=== PATIENT | male | born 1990 | race Caucasian/White ===

== ENCOUNTER 2019-11-04 10:42 | Emergency (ER) | payer MEDICAID ==
[~2019-11-04] VITALS: Ht 185.4 cm; Wt 123.8 kg
--- NOTE | 2019-11-04 11:10 | NUR ---
RADIOLOGY AT BEDSIDE
--- NOTE | 2019-11-04 11:13 | NUR ---
COUGH, CONGESTION, AND CHILLS X 3 DAYS. DENIES PAIN, FEVER, H/A. DENIES SOB, DIZZINESS, WEAKNESS, N/V. AOX4, AMBULATORY, VSS, RR EVEN AND UNLABORED ON ROOM AIR. NO ACUTE DISTRESS NOTED. SKIN INTACT, WARM, DRY. NO OTHER MEDICAL COMPLAINTS AT THIS TIME. MADE COMFORTABLE AND READY FOR EVAL.
[2019-11-04 11:33] VITALS: BP 147/91
--- NOTE | 2019-11-04 11:33 | NUR ---
Patient discharged to home in stable condition. Written and verbal after care instructions given. Patient verbalizes understanding of instruction.
== END 2019-11-04 11:33 | disposition home or self-care (01) ==
LOC: ER 10:49
DX: J06.9 Acute upper respiratory infection, unspecified (principal)
CPT/HCPCS: 71045-TC

== ENCOUNTER 2021-08-30 10:56 | Emergency (ER) | payer MEDICAID ==
[~2021-08-30] VITALS: Ht 182.9 cm; Wt 97.5 kg
[2021-08-30 11:08] VITALS: BP 135/64
--- NOTE | 2021-08-30 11:11 | NUR ---
BIBS for c/o R thumb crush injury while using a hammer at 0900. unknown tdap vaccine. Rates right thumb pain 03/31. Will continue to monitor the patient.
[2021-08-30] MEDS ORDERED: IBUPROFEN 600 MG TABLET PO ONE (11:30)
[2021-08-30] MEDS ORDERED: TDAP [DIPH/PERTUSSIS/TET] 0.5 ML VIAL IM ONE ×2 (11:30→11:35)
[2021-08-30] MEDS ORDERED: IBUPROFEN 600 MG TABLET ONE (11:35)
--- NOTE | 2021-08-30 11:35 | NUR ---
COURTESY VAN DRIVER AT PT'S BEDSIDE
[2021-08-30] MEDS ORDERED: CEPH500C2 PO (11:58)
[2021-08-30] MEDS ORDERED: IBUP-1957 PO (11:58)
[2021-08-30] MEDS ORDERED: HYDR-3972 PO (11:58)
--- NOTE | 2021-08-30 12:06 | NUR ---
Patient discharged to home in stable condition. Written and verbal after care instructions given. Patient verbalizes understanding of instruction.
== END 2021-08-30 12:07 | disposition home or self-care (01) ==
LOC: ER 11:17
DX: S62.522A Displaced fracture of distal phalanx of left thumb, initial encounter for closed fracture (principal); W22.8XXA Striking against or struck by other objects, initial encounter; Y93.89 Activity, other specified; Y92.89 Other specified places as the place of occurrence of the external cause; Y99.8 Other external cause status
CPT/HCPCS: 73140-TC; 90715

== ENCOUNTER 2022-11-12 10:39 | Emergency (ER) | payer MEDICAID ==
[~2022-11-12] VITALS: Ht 185.4 cm; Wt 120.2 kg
[~2022-11-12 10:39] MED LIST: CEPH500C2 PO; HYDR-3972 PO; IBUP-1957 PO
--- NOTE | 2022-11-12 10:40 | NUR ---
PATIENT ARRIVED C/C LOWER BACK PAIN. A/O X 3
[2022-11-12] MEDS ORDERED: KETOROLAC TROMETHAMINE INJ 30 MG/ML VIAL ONE (12:29)
[2022-11-12] MEDS ORDERED: CYCLOBENZAPRINE 10 MG TABLET ONE (12:29)
[2022-11-12] MEDS ORDERED: LIDOCAINE 5% (PATCH) 1 EA PATCH TP ONE (12:29)
[2022-11-12] MEDS ORDERED: CYCLOBENZAPRINE 10 MG TABLET PO ONE (12:30)
[2022-11-12] MEDS ORDERED: predniSONE 20 MG TABLET PO ONE (12:30)
[2022-11-12] MEDS ORDERED: KETOROLAC TROMETHAMINE INJ 30 MG/ML VIAL IM ONE (12:30)
[2022-11-12] MEDS ORDERED: predniSONE 20 MG TABLET ONE (12:33)
[2022-11-12] MEDS: LIDOCAINE 5% (PATCH) 1 EA PATCH TP SCH ×2 (12:53→12:55)
[2022-11-12] MEDS ORDERED: CYCL10TA9 PO (12:59)
[2022-11-12] MEDS ORDERED: NAPR500T6 PO (12:59)
[2022-11-12 13:16] VITALS: BP 127/88
== END 2022-11-12 13:17 | disposition home or self-care (01) ==
LOC: ER 10:41
DX: M54.50 Low back pain, unspecified (principal); Z79.899 Other long term (current) drug therapy
CPT/HCPCS: 99284; 96372; J7512; J1885

== ENCOUNTER 2025-02-03 10:57 | Emergency (ER) | payer MEDICAID ==
[~2025-02-03] VITALS: Ht 185.4 cm; Wt 124.7 kg
[~2025-02-03 10:57] MED LIST changes: +CYCL10TA9 PO; +NAPR500T6 PO
[2025-02-03] MEDS: IV NS 0.9% 1,000 ML BAG IV ONE (11:25)
[2025-02-03 11:38] LABS: BASOPHILS # (AUTO) 0.2 K/uL (0.0-0.2); BASOPHILS % (AUTO) 2.4 % (0.0-2.0); EOSINOPHILS % (AUTO) 0.7 % (0.0-6.0); HEMATOCRIT 50 % (39-51); HEMOGLOBIN 17.6 g/dL (13.5-17.5); LYMPHOCYTES # (AUTO) 1.5 K/uL (0.8-4.8); LYMPHOCYTES % (AUTO) 22.7 % (20.0-44.0); MEAN CORPUSCULAR HEMOGLOBIN 30 PG (26.0-33.0); MEAN CORPUSCULAR HGB CONC 35 g/dl (31.0-36.0); MEAN CORPUSCULAR VOLUME 87 fL (80-96); MONOCYTES # (AUTO) 0.4 K/uL (0.1-1.30); MONOCYTES % (AUTO) 6.9 % (2.0-12.0); NEUTROPHILS # (AUTO) 4.4 K/uL (1.8-8.9); NEUTROPHILS % (AUTO) 67.3 % (43.0-81.0); PLATELET COUNT (AUTO) 257 K/uL (150-450); RED CELL DISTRIBUTION WIDTH 13.3 % (11.5-15.0); WHITE BLOOD COUNT (AUTO) 6.5 K/uL (4.3-11.0)
[2025-02-03 11:47] LABS: CALCIUM, SERUM 9.4 mg/dL (8.5-10.1); POTASSIUM 4.1 mmol/L (3.5-5.1)
[2025-02-03 13:00] VITALS: BP 118/69; TEMP 97.9; O2SAT 98
== END 2025-02-03 13:00 | disposition home or self-care (01) ==
LOC: ER 10:59
DX: S09.8XXA Other specified injuries of head, initial encounter (principal); R55 Syncope and collapse; Z79.1 Long term (current) use of non-steroidal anti-inflammatories (NSAID); Z79.899 Other long term (current) drug therapy; W22.03XA Walked into furniture, initial encounter; Y93.89 Activity, other specified; Y92.89 Other specified places as the place of occurrence of the external cause; Y99.8 Other external cause status
CPT/HCPCS: 99284; 96360; 70450; 93005; 85025; 80048; 36415; J7030